=== PATIENT | male | born 1935 | race Caucasian/White ===

== ENCOUNTER → 2016-09-03 | Outpatient (CLI) | payer MEDICARE, OTHER ==
[~2016-09-03] MED LIST: ASPIRIN EC325 MG PO; ASPIRIN LO-DOSE81 MG PO; CELEBREX200 MG PO; GLUCOPHAGE1000 MG PO; GLUCOTROL XL10 MG PO; ONGLYZA2.5 MG PO; PRAVACHOL80 MG PO; PRINIVIL (ZESTRI5 MG PO; SOTALOL120 MG PO; TYLENOL WITH C1 EACH PO; VITAMIN D-32000 UNI1 PO
== END | disposition disaster alternative care site (69) ==
LOC: LFPA 15:47
DX: N30.01 Acute cystitis with hematuria (principal)

== ENCOUNTER → 2016-09-10 | Outpatient (CLI) | payer MEDICARE, OTHER | LOC: LFPA 15:24 | DX: R06.02 Shortness of breath (principal) ==

== ENCOUNTER → 2016-09-26 | Day surgery (SDC) | payer MEDICARE, OTHER ==
[~2016-09-26] VITALS: Ht 172.7 cm; Wt 103.0 kg
--- NOTE | ~2016-09-26 | OR ---
PATIENT'S NAME: PAMELA MELCHOR [facility] AGE: 81 Y [address] ROOM: [place] [address] LOCATION: [facility] [place] ADMIT DATE: 09/26/2016 OR/Procedure Report DISCHARGE DATE: FAMILY PHYSICIAN: Reinaldo Lopez MD ATTENDING PHYSICIAN: Zara Scanlon SURGEON: Zara Scanlon MD ENTRY WRITER: DATE OF PROCEDURE: 09/26/2016 PREOPERATIVE DIAGNOSES: 1. Renal insufficiency. 2. Bilateral hydronephrosis. POSTOPERATIVE DIAGNOSES: 1. Renal insufficiency. 2. Bilateral hydronephrosis. PROCEDURES PERFORMED: Cystoscopy with bilateral stent placement. ANESTHESIA: MAC. COMPLICATIONS: None. INDICATION FOR PROCEDURE: The patient is an 81-year-old male with bilateral hydronephrosis noted on ultrasound. The patient has had increase in his creatinine up to 2.4, previously it was 1.6. The patient's bladder scan postvoid residual was only 41 mL, ruling out bladder outlet obstruction. The patient was counseled on bilateral stent placement. DETAILS OF PROCEDURE: After informed consent was obtained, the patient was taken to the operating room. A MAC anesthetic was applied, and he was in a dorsal lithotomy position. The groin area was prepped and draped in a normal sterile fashion. Cystoscope was then introduced into the urethra and bladder without difficulty. Both ureteral orifices were visualized and actually were fairly open enough. First, a guidewire was placed into the left distal ureter up into the renal pelvis under fluoroscopy guidance. Next, a 6-Norwegian multi- length stent was passed over the guidewire up into the renal pelvis without difficulty. A guidewire was then placed in the right ureteral orifice and then a 2nd stent was passed up into the renal pelvis. Again, radiographic imaging showed good position of the stent. The patient tolerated the procedure well and was transferred to recovery room in good condition. PATIENT'S NAME: PAMELA MELCHOR [facility] AGE: 81 Y [address] ROOM: [place] [address] LOCATION: [facility] [place] ADMIT DATE: 09/26/2016 OR/Procedure Report DISCHARGE DATE: FAMILY PHYSICIAN: Reinaldo Lopez MD ATTENDING PHYSICIAN: Zara Scanlon MD LEW/angell /[id number] CC: Reinaldo Lopez MD d: 09/26/16 2311 t: 10/16/16 0902, OPERATIVE SUMMARY
== END | disposition disaster alternative care site (69) ==
LOC: GPOC 09-25 16:00 → GSDC 11:57
PROC: 0T788DZ Dilation of Bilateral Ureters with Intraluminal Device, Via Natural or Artificial Opening Endoscopic (ICD-10-PCS; principal; 2016-09-26)
DX: N13.30 Unspecified hydronephrosis (principal); N28.9 Disorder of kidney and ureter, unspecified; E11.9 Type 2 diabetes mellitus without complications; E78.00 Pure hypercholesterolemia, unspecified; I10 Essential (primary) hypertension; I48.0 Paroxysmal atrial fibrillation; Z86.711 Personal history of pulmonary embolism; Z98.890 Other specified postprocedural states; Z79.899 Other long term (current) drug therapy; Z79.82 Long term (current) use of aspirin; Z90.49 Acquired absence of other specified parts of digestive tract
CPT/HCPCS: C1769; J1956; J2001; J7030